=== PATIENT | male | born 1985 | race African-American/Black ===

== ENCOUNTER 2020-08-20 04:26 | Emergency (ER) | payer SELFPAY ==
[~2020-08-20] VITALS: Ht 162.6 cm; Wt 68.0 kg
[~2020-08-20 04:26] MED LIST: DAILY MULTIPLE1 EACH PO; GINKGO BILOBA120 M1 PO; GINSENG PO; OSTERA TABLET1 EACH PO; RITALIN20 MG PO
== END 2020-08-20 08:57 | disposition home or self-care (01) ==
LOC: ED 04:26
DX: T54.91XA Toxic effect of unspecified corrosive substance, accidental (unintentional), initial encounter (principal); Z87.891 Personal history of nicotine dependence; Z88.5 Allergy status to narcotic agent
CPT/HCPCS: 99284

== ENCOUNTER 2020-11-30 23:42 | Emergency (ER) | payer SELFPAY ==
[~2020-11-30] VITALS: Ht 172.7 cm; Wt 73.0 kg
== END 2020-12-01 01:13 | disposition home or self-care (01) ==
LOC: ED 23:42
DX: L98.9 Disorder of the skin and subcutaneous tissue, unspecified (principal); Z87.891 Personal history of nicotine dependence; Z88.5 Allergy status to narcotic agent
CPT/HCPCS: 99283

== ENCOUNTER 2021-01-20 20:50 | Emergency (ER) | payer OTHER ==
--- NOTE | 2021-01-21 07:28 | CONS ---
[facility] [address] [place], [place] [address] Signed DATE OF CONSULTATION: CHIEF COMPLAINT: Trauma. HISTORY OF PRESENT ILLNESS: Trell is a 35-year-old gentleman who is a transient individual in our community. He is well known to our local Police Department as well as actually to the security at our hospital. Apparently, he was walking through town near . The robotics software engineer called ambulance and he was brought to our local emergency room. He had some nonpurposeful movement and a rather significant injury to the right forehead and orbit. He was intubated. I have been called asked to come to the emergency room for help evaluation. He has received some Ancef and was sent over to the CT scanner. We have seen the initial films and he has a rather significant depressed skull fracture of the right forehead and orbit. [facility] has already been contacted by our ER physician for transport. No obvious injury to his chest, abdomen and pelvis. PAST MEDICAL HISTORY: Unknown. PAST SURGICAL HISTORY: Unknown. SOCIAL HISTORY: Unknown. Although his father is listed as Main at [phone]. FAMILY HISTORY: Unknown. REVIEW OF SYSTEMS: Unknown. ALLERGIES: Morphine. MEDICATIONS: None that we know. PHYSICAL EXAMINATION: VITAL SIGNS: Not currently available. GENERAL: Trell is a 35-year-old gentleman who is lying supine on his ER bed. He has an ET tube in place. He has a rather significant right forehead injury. No obvious deformities to his extremities, chest, abdomen and pelvis. Electronically Signed By: ALMAZ DAVIDSON MD 01/21/21 0728 PATIENT NAME: TRELL JAMES CONSULTATION DATE OF : 85 REPORT #: [id number] PHYSICIAN: ALMAZ DAVIDSON MD PCP: NO PRIMARY CARE PHYSICIAN REPORT IS CONFIDENTIAL AND NOT TO BE RELEASED WITHOUT AUTHORIZATION [facility] [address] [place], [place] [address] Signed LABORATORY DATA: Labs are pending. RADIOGRAPHIC STUDIES: A CT scan of chest, abdomen, and pelvis has been performed were waiting for our radiologist to read that. On initial review, he has a rather significant depressed skull fracture to the right forehead and around the orbit. No obvious injury to his chest, abdomen and pelvis. No solid organ injury that we can ascertain. ASSESSMENT AND PLAN: Trell is a 35-year-old gentleman who presents as above with a rather significant right forehead depressed skull fracture. We are awaiting the final read from our radiologist. In the meantime, our x-rays have been sent down to [facility]. Our ER physician has already spoken with [facility] and will be excepting the patient. At this point, nothing further that I can add. This was discussed and reviewed with Dr. Duarte Almaz Davidson MD ALB/MODL /[id number] cc: Patient chart Almaz Davidson MD Copies: ALMAZ DAVIDSON MD ~ Electronically Signed By: ALMAZ DAVIDSON MD 01/21/21 0728 PATIENT NAME: TRELL JAMES CONSULTATION DATE OF : 85 REPORT #: [id number] PHYSICIAN: ALMAZ DAVIDSON MD PCP: NO PRIMARY CARE PHYSICIAN REPORT IS CONFIDENTIAL AND NOT TO BE RELEASED WITHOUT AUTHORIZATION
== END 2021-01-21 02:40 | disposition short-term general hospital (02) ==
LOC: ED 20:50
DX: S02.91XA Unspecified fracture of skull, initial encounter for closed fracture (principal); V05 Pedestrian injured in collision with railway train or railway vehicle; Z87.891 Personal history of nicotine dependence; Z88.5 Allergy status to narcotic agent
CPT/HCPCS: 31500; 36600; 51702; 70450; 71045; 71260; 72125; 74177; 80053; 81001; 82803; 83605; 85025; 90471; 90715; 94002; 94799; 99285-25; J0330; J0690; J1953; J2060; J2704; J3010; Q9967; U0003

== ENCOUNTER 2022-02-08 11:26 | Emergency (ER) | payer OTHER ==
[~2022-02-08] VITALS: Ht 172.7 cm; Wt 69.8 kg
== END 2022-02-08 12:27 | disposition left against medical advice (07) ==
LOC: ED 11:26
DX: R56.9 Unspecified convulsions (principal); Z87.820 Personal history of traumatic brain injury; Z87.891 Personal history of nicotine dependence; Z88.5 Allergy status to narcotic agent
CPT/HCPCS: 36415; 80053; 81001; 85025; 99285-25; G0480

== ENCOUNTER 2024-01-05 10:52 | Emergency (ER) | payer OTHER ==
[~2024-01-05] VITALS: Ht 175.3 cm; Wt 74.0 kg
[~2024-01-05 10:52] MED LIST changes: +BACTRIM DS TAB1 EACH PO; +KEPPRA500 MG PO
--- OUTSIDE RECORDS SUMMARY | 2024-01-05 10:59 | XMS ---
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 - Patient eloped before treatment completed. - Patient with suicidal and/or homicidal ideations eloped. Details: Patient left AMA CRITERIA MET - Group Notification CARE PROVIDERS -, [facility] Dentist: Armored Machine Operator [facility] PHONE: [phone] -, Alvaro- Dentist: Armored Machine Operator [facility] PHONE: [phone] SEBASTIAN GOMEZ Current PHONE: [phone] LEON [facility] Current PHONE: Unknown Chiquis has no Care Guidelines for this patient. E.DAlyssa VISIT COUNT (12 MO.) 3 DIANA Pham TOTAL 3 NOTE: Visits indicate total known visits. ED/UCC VISIT TRACKING (12 MO.) 01/05/2024 10:53 [facility] TYPE: Emergency COMPLAINT: - AMS 10/20/2023 02:09 [facility] TYPE: Emergency COMPLAINT: - POSS SEIZURE 05/21/2023 09:16 [facility] TYPE: Emergency COMPLAINT: - FALL DIAGNOSES: - Altered mental status, unspecified - Tachycardia, unspecified - Unspecified convulsions INPATIENT VISIT TRACKING (12 MO.) No inpatient visits to display in this time frame [id number]
[2024-01-05 11:16] VITALS: BP 140/87
== END 2024-01-05 11:17 | disposition home or self-care (01) ==
LOC: ED 10:52
DX: S00.81XA Abrasion of other part of head, initial encounter (principal); W19.XXXA Unspecified fall, initial encounter; Z87.891 Personal history of nicotine dependence; Z88.5 Allergy status to narcotic agent; Z79.899 Other long term (current) drug therapy
CPT/HCPCS: 99283